=== PATIENT | male | born 1970 | race Caucasian/White ===

== ENCOUNTER 2016-10-20 13:12 | Emergency (ER) | payer SELFPAY ==
[2016-10-20 13:48] VITALS: BP 132/72
--- NOTE | 2016-10-20 15:23 | UC ---
Skin Complaint HPI - HPI Summary HPI Summary: FOUR WEEKS OF RASH ON (BILATERAL) BACK, HAD BEEN ITCHY, NOW RASH SEEMS TO BE SPREADING AND ITCHED AREAS ARE GETTING PAINFUL. - History of Current Complaint Chief Complaint: UCRash Time Seen by Provider: 10/20/16 14:26 Stated Complaint: RASH Hx Obtained From: Patient Onset/Duration: Gradual Onset, Lasting Weeks, Still Present Skin Exposure Onset/Duration: Weeks Ago Timing: Constant Onset Severity: Mild Current Severity: Moderate Location: Diffuse - BILATERAL UPPER BACK Character: Pruritus, Redness Aggravating: Touch Alleviating: Nothing Associated Signs & Symptoms: Positive: Rash, Drainage, Tenderness. Negative: Fever, Chills, Cough, Wheezing, Hoarseness, Throat Tightening, Syncope Related History: Possible Reaction to: Environmental Exposure - Allergy/Home Medications Allergies/Adverse Reactions: Allergies Allergy/AdvReac Type Severity Reaction Status Date / Time No Known Allergies Allergy Verified 10/20/16 13:48 Review of Systems Constitutional: Negative Skin: Rash Eyes: Negative ENT: Negative Respiratory: Negative Cardiovascular: Negative Gastrointestinal: Negative Genitourinary: Negative Motor: Negative Neurovascular: Negative Musculoskeletal: Negative Neurological: Negative Psychological: Negative All Other Systems Reviewed And Are Negative: Yes PMH/Surg Hx/FS Hx/Imm Hx Previously Healthy: Yes Endocrine History Of: Denies: Diabetes, Thyroid Disease Cardiovascular History Of: Denies: Cardiac Disorders, Hypertension Respiratory History Of: Denies: COPD, Asthma GI/ History Of: Denies: Ulcer - Surgical History Surgical History: None - Family History Known Family History: Negative: Diabetes - Social History Occupation: Employed Full-time Alcohol Use: None Substance Use Type: None Smoking Status (MU): Heavy Every Day Tobacco Smoker Type: Cigarettes Amount Used/How Often: 1 PK DAY Cessation Counseling: Counseled 3+Min - 10 Min Physical Exam Triage Information Reviewed: Yes Appearance: Well-Appearing, No Pain Distress, Well-Nourished Vital Signs: Initial Vital Signs Temp 98.2 F 10/20/16 13:44 Pulse 66 10/20/16 13:44 Resp 20 10/20/16 13:44 BP 132/72 10/20/16 13:44 Pulse Ox 100 10/20/16 13:44 Vital Signs Reviewed: Yes Eye Exam: Normal Eyes: Positive: Conjunctiva Clear ENT Exam: Normal ENT: Positive: Normal ENT inspection, Hearing grossly normal, Pharynx normal, TMs normal Dental Exam: Normal Neck exam: Normal Neck: Positive: Supple, Nontender, No Lymphadenopathy Respiratory Exam: Normal Respiratory: Positive: Chest non-tender, Lungs clear, Normal breath sounds, No respiratory distress, No accessory muscle use Cardiovascular Exam: Normal Cardiovascular: Positive: RRR, No Murmur, Pulses Normal Abdominal Exam: Normal Abdomen Description: Positive: Nontender, No Organomegaly Musculoskeletal Exam: Normal Musculoskeletal: Positive: Strength Intact, ROM Intact Neurological Exam: Normal Psychological Exam: Normal Skin: Positive: rashes Course/Dx - Differential Diagnoses - Skin Complaint Differential Diagnoses: Abscess, Allergic Reaction, Cellulitis - Diagnoses Provider Diagnoses: TINEA CORPORIS SUPERIOR BACK. CELLULITIS SUPERIOR BACK AT EXCORIATED SITES Discharge - Discharge Plan Condition: Stable Disposition: HOME Prescriptions: Cephalexin CAP* [Keflex CAP*] 500 mg PO QID #40 cap Ketoconazole 2 % CREAM (NF) [Nizoral 2% CREAM (NF)] 1 applic TOPICAL TID #1 tube Patient Education Materials: Cellulitis (ED), Tinea Corporis (ED) Referrals: [facility] [place] [facility] [Outside] Sabrina Palmer [Medical Doctor] - No Primary Care Phys,NOPCP [Primary Care Provider] -
== END 2016-10-20 15:05 | disposition home or self-care (01) ==
LOC: UCEAST 13:12
DX: B35.4 Tinea corporis (principal); L03.312 Cellulitis of back [any part except buttock and flank]; F17.210 Nicotine dependence, cigarettes, uncomplicated; Z71.6 Tobacco abuse counseling
CPT/HCPCS: 99212; G0463

== ENCOUNTER 2017-12-18 12:35 | Emergency (ER) | payer MEDICAID, OTHER ==
--- NOTE | 2017-12-18 13:54 | ED ---
Laceration/Wound HPI - HPI Summary HPI Summary: 47-year-old male presents with left arm laceration today. He states that his truck slipped and truck cap landed on his left arm. He has contusion noted to his left arm. Full range of motion of his left arm. No numbness or tingling. He is left-handed. Has abrasion noted to left arm. Did not clean the abrasion. Tetanus is up-to-date. No medical conditions. - History of Current Complaint Stated Complaint: LT UPPER EXTREMITY LAC Time Seen by Provider: 12/18/17 12:48 Pain Intensity: 0 - Allergy/Home Medications Allergies/Adverse Reactions: Allergies Allergy/AdvReac Type Severity Reaction Status Date / Time No Known Allergies Allergy Verified 10/20/16 13:48 Home Medications: Home Medications NK [No Home Medications Reported] 12/18/17 [History Confirmed 12/18/17] PMH/Surg Hx/FS Hx/Imm Hx Endocrine/Hematology History: Denies: Hx Diabetes, Hx Thyroid Disease Cardiovascular History: Denies: Hx Hypertension Respiratory History: Denies: Hx Asthma, Hx Chronic Obstructive Pulmonary Disease (COPD) GI History: Denies: Hx Ulcer Infectious Disease History: No Infectious Disease History: Denies: Hx Hepatitis, Hx Human Immunodeficiency Virus (HIV), Traveled Outside the [place] in Last 30 Days - Family History Known Family History: Negative: Diabetes - Social History Alcohol Use: None Substance Use Type: Reports: None Smoking Status (MU): Heavy Every Day Tobacco Smoker Type: Cigarettes Amount Used/How Often: 1 PK DAY Review of Systems Negative: Fever Negative: Chest Pain Negative: Shortness Of Breath Positive: Other - abrasion left forearm All Other Systems Reviewed And Are Negative: Yes Physical Exam Triage Information Reviewed: Yes Vital Signs On Initial Exam: Initial Vitals Temp Pulse Resp BP Pulse Ox 98.3 F 91 15 121/87 97 12/18/17 12:41 12/18/17 12:41 12/18/17 12:41 12/18/17 12:41 12/18/17 12:41 Vital Signs Reviewed: Yes Appearance: Positive: Well-Appearing Skin: Positive: Warm, Dry, Other - 2 centimeter 1/2 cm abrasion noted to left forearm Head/Face: Positive: Normal Head/Face Inspection Eyes: Positive: Normal, Conjunctiva Clear Respiratory/Lung Sounds: Positive: Clear to Auscultation, Breath Sounds Present Cardiovascular: Positive: Normal, RRR Musculoskeletal: Positive: Strength/ROM Intact - left arm, Other - good pulses, capillary refill<2 secs, mild edema noted to left forearm Neurological: Positive: Normal Psychiatric: Positive: Normal Diagnostics - Vital Signs Vital Signs Temp Pulse Resp BP Pulse Ox 12/18/17 12:41 98.3 F 91 15 121/87 97 - Laboratory Lab Statement: Any lab studies that have been ordered have been reviewed, and results considered in the medical decision making process. Laceration Repair Course/Dx - Course Course Of Treatment: 47-year-old male presents with left arm laceration today. He states that his truck slipped and truck cap landed on his left arm. He has contusion noted to his left arm. Full range of motion of his left arm. No numbness or tingling. He is left-handed. Has abrasion noted to left arm. Did not clean the abrasion. Tetanus is up-to-date. No medical conditions. On exam has 2 cm by half centimeter abrasion noted to left forearm. Full range of motion arm. Neurovascular intact. Cleaned abrasion and placed sterristrips on aera. Told to keep clean. Patient understands and agrees with plan. - Differential Dx Differental Diagnoses: Abrasion, Avulsion, Laceration - Clinical Impression Provider Diagnoses: Abrasion of left upper arm Discharge - Sign-Out/Discharge Documenting (check all that apply): Discharge/Admit/Transfer - Discharge Plan Condition: Good Disposition: HOME Patient Education Materials: Abrasion (ED) Referrals: [facility] [place] [facility] REFERRAL [Outside] Additional Instructions: Establish care with primary Was area with soap and water once a day Steri-Strips will fall off on own Placed ice on the area Return to ED if develop any new or worsening symptoms - Billing Disposition and Condition Condition: GOOD Disposition: HOME
[2017-12-18 14:09] VITALS: BP 122/67
== END 2017-12-18 14:08 | disposition home or self-care (01) ==
LOC: ED 12:35
DX: S40.812A Abrasion of left upper arm, initial encounter (principal); W22.8XXA Striking against or struck by other objects, initial encounter; Y92.9 Unspecified place or not applicable; F17.210 Nicotine dependence, cigarettes, uncomplicated
CPT/HCPCS: 99282

== ENCOUNTER 2018-08-17 20:34 | Emergency (ER) | payer OTHER ==
[2018-08-17 20:49] VITALS: BP 122/70
[2018-08-17] MEDS ORDERED: Cephalexin CAP* 500 MG PO ONE (21:40)
--- NOTE | 2018-08-17 21:59 | UC ---
Skin Complaint HPI - HPI Summary HPI Summary: 2. WOKE UP THIS MORNING WITH AREA OF TENDER REDNESS TO HIS LEFT CALF. STATES YESTERDAY HE HAD 3 SMALL BUMPS IN THAT SAME AREA WHICH HE SCRATCHED. NO FEVER. NO NAUSEA/VOMITING. 2. 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 PATIENT STATES THAT HE HAS PULLED ALL THESE OBJECTS OUT OF HIS THUMB AND HAS BEEN DIGGING AT IT SINCE THEN. NOW HE STATES HIS THUMB IS TENDER AND SWOLLEN AND HE CAN'T BEND IT ALL THE WAY. HAS FULL SENSATION. NO NUMBNESS. UP-TO-DATE TETANUS 04/19/15. - History of Current Complaint Chief Complaint: UCSkin Time Seen by Provider: 08/17/18 20:49 Stated Complaint: SPIDER BITE Pain Intensity: 2 - Allergy/Home Medications Allergies/Adverse Reactions: Allergies Allergy/AdvReac Type Severity Reaction Status Date / Time No Known Allergies Allergy Verified 08/17/18 20:40 PMH/Surg Hx/FS Hx/Imm Hx Cardiovascular History: Cardiac Disease - PT STATES HE WAS TOLD HE HAD A HEART ATTACK - Surgical History Surgical History: None - Family History Known Family History: Negative: Diabetes - Social History Alcohol Use: None Substance Use Type: Marijuana Smoking Status (MU): Heavy Every Day Tobacco Smoker Type: Cigarettes Amount Used/How Often: 1 PK DAY Review of Systems All Other Systems Reviewed And Are Negative: Yes Constitutional: Negative: Fever, Chills Skin: Positive: Other - ERYTHEMA LEFT CALF. WOUNDS RIGHT THUMB Respiratory: Positive: Negative Cardiovascular: Positive: Negative Gastrointestinal: Positive: Negative Musculoskeletal: Positive: Arthralgia, Decreased ROM, Edema Physical Exam Triage Information Reviewed: Yes Appearance: Well-Appearing, No Pain Distress, Well-Nourished Vital Signs: Initial Vital Signs Temp 98.8 F 08/17/18 20:41 Pulse 72 08/17/18 20:41 Resp 18 08/17/18 20:41 BP 122/70 08/17/18 20:41 Pulse Ox 98 08/17/18 20:41 Vital Signs Reviewed: Yes Eyes: Positive: Conjunctiva Clear ENT: Positive: Hearing grossly normal Neck: Positive: Supple Respiratory: Positive: No respiratory distress, No accessory muscle use Cardiovascular: Positive: Pulses Normal Abdomen Description: Positive: Soft Musculoskeletal: Positive: ROM Limited @ - RIGHT THUMB, Edema @ - RIGHT THUMB, Other: - NEUROVASCULARLY INTACT Neurological: Positive: Alert Psychological: Positive: Age Appropriate Behavior Skin: Positive: Other - 15CM X 6CM AREA OF ERYTHEMA AND TENDERNESS LEFT CALF WITH PUNCTATE OPENING CENTRALLY LOCATED. RIGHT THUMB WITH SEVERAL OPEN AREAS PARTIALLY HEALED AND SCABBING. THUMB IS SWOLLEN. Course/Dx - Course Course Of Treatment: WILL TREAT WITH CEPHALEXIN TO COVER FOR CELLULITIS OF PATIENT'S LEFT CALF AND OF HIS RIGHT THUMB. ADVISED PATIENT NOT TO DIG AT THE WOUNDS ON HIS THUMB ANYMORE. X-RAY TODAY REVEALS NO FOREIGN BODY ON MY INITIAL INTERPRETATION. OFFICIAL RADIOLOGY READ IS PENDING. PATIENT ADVISED TO FOLLOW- UP WITH HAND SURGEON SHOULD HIS THUMB NOT IMPROVE OVER THE NEXT COUPLE OF DAYS. FOLLOW-UP WITH HIS PCP NEEDED. TO THE ER WITHOUT FAIL IF HIS SYMPTOMS WORSEN. - Diagnoses Provider Diagnosis: Cellulitis of left lower extremity, Cellulitis of right thumb Discharge - Sign-Out/Discharge Documenting (check all that apply): Patient Departure All imaging exams completed and their final reports reviewed: No - Discharge Plan Condition: Stable Disposition: HOME Prescriptions: Cephalexin CAP* [Keflex 500 CAP*] 1,000 mg PO BID #28 cap Patient Education Materials: Cellulitis (ED) Referrals: Rik Mccollum MD [Medical Doctor] - If Needed Corwin Christian MD [Medical Doctor] - If Needed Additional Instructions: YOU HAVE CELLULITIS OF YOUR LEFT CALF AND ALSO OF YOUR RIGHT THUMB LIKELY DUE TO INTRODUCTION OF BACTERIA THROUGH THE WOUNDS IN YOUR SKIN. YOUR LAST TETANUS BOOSTER WAS 04/19/15 SO YOU ARE UP TO DATE. TAKE THE ANTIBIOTICS FOR THE FULL COURSE. SOAK YOUR THUMB IN HOT WATER 4 TIMES DAILY. DO NOT DIG AT THE WOUND ANYMORE. IF YOUR THUMB IS NOT IMPROVING WITH THE ANTIBIOTICS AND SOAKS CALL ORTHOPEDICS FOR AN APPT WITH A HAND SPECIALIST. GO TO THE ED WITHOUT FAIL IF YOU DEVELOP CONTINUED SPREADING REDNESS OF THE SKIN , PURULENT DRAINAGE, FEVER, INCREASED PAIN OR ANY OTHER CONCERNING SYMPTOMS. IF YOU ARE UNABLE TO RE-ESTABLISH WITH DR. CHRISTIAN CALL THE NUMBER BELOW FOR ASSISTANCE IN ESTABLISHING WITH A PCP An additional resource available to assist in finding the appropriate physician for your health care needs is [facility] ([facility]). You may contact them by calling [phone]. - Billing Disposition and Condition Condition: STABLE Disposition: Home
--- NOTE | 2018-08-18 08:20 | UC ---
- Progress Note Progress Note: RADIOLOGY REPORT REVIEWED - OSTEOARTHRITIS. NO ACUTE OSSEOUS INJURY. NO CHANGE IN MGMT. Course/Dx - Diagnoses Provider Diagnoses: Cellulitis of left lower extremity, Cellulitis of right thumb Discharge - Sign-Out/Discharge Documenting (check all that apply): Post-Discharge Follow Up All imaging exams completed and their final reports reviewed: Yes - Discharge Plan Condition: Stable Disposition: HOME Prescriptions: Cephalexin CAP* [Keflex 500 CAP*] 1,000 mg PO BID #28 cap Patient Education Materials: Cellulitis (ED) Referrals: Rik Mccollum MD [Medical Doctor] - If Needed Corwin Christian MD [Medical Doctor] - If Needed Additional Instructions: YOU HAVE CELLULITIS OF YOUR LEFT CALF AND ALSO OF YOUR RIGHT THUMB LIKELY DUE TO INTRODUCTION OF BACTERIA THROUGH THE WOUNDS IN YOUR SKIN. YOUR LAST TETANUS BOOSTER WAS 04/19/15 SO YOU ARE UP TO DATE. TAKE THE ANTIBIOTICS FOR THE FULL COURSE. SOAK YOUR THUMB IN HOT WATER 4 TIMES DAILY. DO NOT DIG AT THE WOUND ANYMORE. IF YOUR THUMB IS NOT IMPROVING WITH THE ANTIBIOTICS AND SOAKS CALL ORTHOPEDICS FOR AN APPT WITH A HAND SPECIALIST. GO TO THE ED WITHOUT FAIL IF YOU DEVELOP CONTINUED SPREADING REDNESS OF THE SKIN , PURULENT DRAINAGE, FEVER, INCREASED PAIN OR ANY OTHER CONCERNING SYMPTOMS. IF YOU ARE UNABLE TO RE-ESTABLISH WITH DR. CHRISTIAN CALL THE NUMBER BELOW FOR ASSISTANCE IN ESTABLISHING WITH A PCP An additional resource available to assist in finding the appropriate physician for your health care needs is the [facility] ([facility]). You may contact them by calling [phone]. - Billing Disposition and Condition Condition: STABLE Disposition: Home
== END 2018-08-17 22:05 | disposition home or self-care (01) ==
LOC: UCEAST 20:34
DX: L03.116 Cellulitis of left lower limb (principal); L03.011 Cellulitis of right finger; M19.041 Primary osteoarthritis, right hand; F17.210 Nicotine dependence, cigarettes, uncomplicated
CPT/HCPCS: 99212; A9270-GY; G0463